=== PATIENT | male | born 1945 ===

== ENCOUNTER 2016-12-24 08:32 | Emergency (ER) | payer MEDICARE ==
[2016-12-24 08:36] VITALS: O2SAT 95; BMI 21.9
--- NOTE | 2016-12-24 09:49 | C.PDOC ---
History Of Present Illness 71-year-old male, presents to the emergency department accompanied by family with complaints of body aches, generalized headache, fever and cough x1 week. Patient notes associated chest pain when he coughs. Denies nausea/vomiting, dizziness, diarrhea, or any other associated associated symptoms. No other complaints at this time. Time Seen by Provider: 12/24/16 08:49 Chief Complaint (Nursing): Flu-like Symptoms History Per: Patient History/Exam Limitations: no limitations Past Medical History Reviewed: Historical Data, Nursing Documentation, Vital Signs Vital Signs: Last Vital Signs Temp 100.3 F H 12/24/16 10:21 Pulse 88 12/24/16 10:21 Resp 19 12/24/16 10:21 BP 132/65 12/24/16 10:21 Pulse Ox 95 12/24/16 11:17 - Medical History PMH: No Chronic Diseases Family History: States: Unknown Family Hx - Social History Hx Alcohol Use: No Hx Substance Use: No - Immunization History Hx Tetanus Toxoid Vaccination: No Hx Influenza Vaccination: No Hx Pneumococcal Vaccination: No Review Of Systems Constitutional: Positive for: Fever. Negative for: Chills, Weakness, Malaise Cardiovascular: Negative for: Chest Pain, Palpitations Respiratory: Positive for: Cough. Negative for: Shortness of Breath Gastrointestinal: Negative for: Nausea, Vomiting Musculoskeletal: Negative for: Neck Pain, Back Pain Skin: Negative for: Rash Neurological: Positive for: Headache. Negative for: Weakness, Numbness Physical Exam - Physical Exam Appears: Non-toxic, No Acute Distress Skin: Warm, Dry, No Rash Head: Atraumatic, Normacephalic Eye(s): bilateral: Normal Inspection, PERRL, EOMI Nose: Normal Oral Mucosa: Moist Lips: Normal Appearing Neck: Normal ROM, Supple Cardiovascular: Rhythm Regular Respiratory: Normal Breath Sounds, No Accessory Muscle Use Extremity: Normal ROM Extremity: Bilateral: Atraumatic, Normal Color And Temperature, Normal ROM Neurological/Psych: Oriented x3, Normal Speech ED Course And Treatment O2 Sat by Pulse Oximetry: 95 (room air) Pulse Ox Interpretation: Normal Medical Decision Making Medical Decision Making: Lab test result positive for Flu B. CXR shows no acute disease Patient remained afebrile and in no acute distress. Explain flu result and recommend supportive treatment. Patient stable for discharge and to follow up. Disposition Counseled Patient/Family Regarding: Diagnosis, Need For Followup, Rx Given - Disposition Disposition: HOME/ ROUTINE Disposition Time: 09:34 Condition: STABLE Additional Instructions: Usted tiene la gripe Jamila Tylenol o Motrin alternando cada 4-6 horas para la fiebre 100.4F o ms alto. Descanse y nicolle muchos lquidos. Puede usar humidificador de vapor o vaporizador fresco en la habitacin. Trate de jamila el antihistamnico contador (Claritin, Criss, Zyrtec), descongestionante o medicina para la tos (Mucinex) segn sea necesario cada 6-8 horas. Anibal un seguimiento con sanchez mdico o clnica primaria en ramo semana para ramo evaluacin posterior Prescriptions: Promethazine DM [Phenergan DM Syrup] 5 ml PO Q8 PRN #3 oz PRN Reason: Cough Instructions: Influenza (ED) Print Language: NIUEAN - POA Present On Arrival: None - Clinical Impression Clinical Impression: Influenza - Scribe Statement The provider has reviewed the documentation as recorded by the Scribe Luca Tipton All medical record entries made by the Scribe were at my direction and personally dictated by me. I have reviewed the chart and agree that the record accurately reflects my personal performance of the history, physical exam, medical decision making, and the department course for this patient. I have also personally directed, reviewed, and agree with the discharge instructions and disposition.
[2016-12-24 10:23] VITALS: BP 132/65; PULSE 88; RESP 19; TEMP 100.3
--- NOTE | 2016-12-24 10:48 | RAD ---
HISTORY: cough COMPARISON: None available. TECHNIQUE: Chest PA and lateral FINDINGS: LUNGS: Emphysematous changes. Retrocardiac opacity may reflect atelectasis or pneumonia. Please note that chest x-ray has limited sensitivity for the detection of pulmonary masses. PLEURA: No significant pleural effusion identified. No definite pneumothorax . CARDIOVASCULAR: Heart size appears within normal limits. OSSEOUS STRUCTURES: Degenerative changes. VISUALIZED UPPER ABDOMEN: Unremarkable. OTHER FINDINGS: None. IMPRESSION: Retrocardiac opacities may reflect atelectasis or pneumonia. Emphysematous changes.
== END 2016-12-24 10:23 | disposition home or self-care (01) ==
LOC: C.ER 08:32
DX: J11.1 Influenza due to unidentified influenza virus with other respiratory manifestations (principal)